=== PATIENT | female | born 1985 | race Caucasian/White ===

== ENCOUNTER → 2017-03-15 | Outpatient (CLI) | payer BC ==
[2017-03-15 09:17] LABS: BASOPHILS # (AUTO) 0.2 X10^3/uL (0.0-0.1); BASOPHILS % (AUTO) 1.4 % (0.2-1.0); EOSINOPHILS # (AUTO) 0.2 x10^3/uL (0.0-0.2); HEMATOCRIT 34.1 % (36.0-47.0); HEMOGLOBIN 11.4 g/dL (12.0-16.0); LYMPHOCYTES # (AUTO) 2.2 X10^3/uL (1.3-2.9); MEAN CORPUSCULAR HEMOGLOBIN 25.8 pg (27.0-34.0); MEAN CORPUSCULAR HGB CONC 33.5 g/dL (33.0-35.0); MEAN CORPUSCULAR VOLUME 77.3 fL (80.0-100.0); MEAN PLATELET VOLUME 8.9 fL (7.4-11.0); MONOCYTES # (AUTO) 0.7 x10^3/uL (0.3-0.8); MONOCYTES % (AUTO) 6.4 % (0.0-13.0); NEUTROPHILS # (AUTO) 7.7 x10^3/uL (2.2-4.8); NEUTROPHILS % (AUTO) 70.2 % (42.0-75.0); PLATELET COUNT 300 X10^3/uL (150.0-450.0); RED BLOOD COUNT 4.41 X10^6/uL (3.5-5.4); RED CELL DISTRIBUTION WIDTH 14.8 % (11.6-16.5)
[2017-03-15 09:23] LABS: BLOOD UREA NITROGEN 8 mg/dL (7-18); CALCIUM 8.5 mg/dL (8.5-10.1); CARBON DIOXIDE 32.4 mmol/L (21-32); CHLORIDE 102 mmol/L (98-107); COR NA(FOR HYPERGLY) 140 mmol/L (136-145); CREATININE 0.71 mg/dL (0.55-1.02); GLUCOSE 211 mg/dL (65-99); SODIUM 137 mmol/L (136-145); eGFR BLACK RACES > 60 (>60); eGFR NON BLACK RACES > 60 (>60)
[2017-03-15 09:25] LABS: SERUM PREGNANCY TEST, QUAL NEGATIVE <10 mIU/mL
[2017-03-15 09:28] LABS: BILIRUBIN,URINE NEGATIVE (NEGATIVE); BLOOD/HEMOGLOBIN,URINE 2+ (NEGATIVE); GLUCOSE, URINE 4+ (NEGATIVE); KETONES,URINE NEGATIVE (NEGATIVE); LEUKOCYTE ESTERASE ,URINE 3+ (NEGATIVE); NITRITES,URINE NEGATIVE (NEGATIVE); PROTEIN,URINE NEGATIVE (NEGATIVE); UROBILINOGEN,URINE NORMAL (NORMAL)
[2017-03-15 09:34] LABS: HYPOCHROMASIA SLIGHT; PLATELET MORPHOLOGY COMMENT NORMAL (NORMAL)
[2017-03-15 10:12] LABS: APPEARANCE,URINE HAZY (CLEAR); BACTERIA,URINE NEGATIVE /HPF (NEGATIVE); COLOR,URINE YELLOW (YELLOW); SQUAMOUS EPITHELIAL CELL,UR MODERATE /HPF (NEGATIVE)
== END ==
LOC: LAB 08:05
PROVIDERS: ATTEND Specialist
DX: Z01.818 Encounter for other preprocedural examination (principal); N92.5 Other specified irregular menstruation; N94.6 Dysmenorrhea, unspecified; R10.2 Pelvic and perineal pain
CPT/HCPCS: 36415; 80048; 81001; 84703; 85025; 85610; 85730; 86850; 86900; 86901; 87086

== ENCOUNTER 2017-03-18 06:24 | Day surgery (SDC) | payer BC ==
[2017-03-18] MEDS ORDERED: NS 50 ML IV + SPIKE MINIBAG* 50 ML IV ONE (06:39)
[2017-03-18] MEDS ORDERED: D5 LR 1000 ML 1,000 ML IV ONE (06:39)
[2017-03-18] MEDS ORDERED: ANCEF VIAL 1 GM ONE (06:40)
[2017-03-18] MEDS ORDERED: NS 1000 ML 1,000 ML ONE (06:40)
[2017-03-18] MEDS ORDERED: FENTANYL INJ 100 mcg ONE (07:13)
[2017-03-18] MEDS ORDERED: DILAUDID INJ ONE (07:47)
[2017-03-18] MEDS ORDERED: PHENERGAN INJ 25 MG IVP PRN (08:02)
[2017-03-18] MEDS ORDERED: DILAUDID INJ IVP PRN (08:02)
[2017-03-18] MEDS ORDERED: ZOFRAN INJ 4 MG VIAL IVP PRN (08:02)
[2017-03-18] MEDS ORDERED: BENADRYL INJ 50 MG VIAL IVP PRN (08:02)
[2017-03-18] MEDS ORDERED: REGLAN INJ 10 MG VIAL IVP PRN (08:02)
[2017-03-18 09:28] VITALS: BP 124/68
[2017-03-18] MEDS ORDERED: ZOFRAN INJ 4 MG VIAL ONE (09:39)
[2017-03-18] MEDS ORDERED: VERSED ONE (09:39)
[2017-03-18] MEDS ORDERED: DIPRIVAN VIAL ONE (09:39)
[2017-03-18] MEDS ORDERED: XYLOCAINE 2 % (PLAIN) ONE (09:39)
[2017-03-18] MEDS ORDERED: SUPRANE IN ONE (14:49)
== END 2017-03-18 09:35 | disposition home or self-care (01) | DRG 743 ==
LOC: SURG1 06:24
PROVIDERS: ATTEND Specialist
PROC: 0U5B8ZZ Destruction of Endometrium, Via Natural or Artificial Opening Endoscopic (ICD-10-PCS; principal; 2017-03-18 07:30)
DX: N92.5 Other specified irregular menstruation (principal); N94.6 Dysmenorrhea, unspecified; R10.2 Pelvic and perineal pain
CPT/HCPCS: A4222; J0690; J1170; J2001; J2250; J2405; J3010; J3490; J7120